=== PATIENT | female | born 1995 | race Caucasian/White ===

== ENCOUNTER 2018-07-06 18:38 | Emergency (ER) | payer OTHER ==
[2018-07-06 18:47] VITALS: BP 122/83; PULSE 97; TEMP 98.1; O2SAT 98
[2018-07-06] MEDS ORDERED: Tdap Vaccine 0.5 ml Vial (10-64 yrs) IM ONE ×2 (19:16→19:35)
[2018-07-06] MEDS ORDERED: Bacitracin 500 Units/gm Oint Foilpak UD TOP ONE (19:16)
[2018-07-06] MEDS ORDERED: Bacitracin 500 Units/gm Oint Foilpak UD ONE ×2 (19:24→19:26)
--- NOTE | 2018-07-06 19:56 | C.PDOC ---
History Of Present Illness 23 year old female presents to the ER after she tripped and fell on her shoelace causing her to land on her hands and knees and hit her face on the ground. Denies LOC, headache, burry vision, or vomiting. - HPI Time Seen by Provider: 07/06/18 19:05 Chief Complaint (Nursing): Trauma History Per: Patient History/Exam Limitations: no limitations Onset/Duration Of Symptoms: Hrs Injury Occurred (Timing): Just Before Arrival Location Of Injury: Right: Hand, Knee, Left: Hand, Knee, Anterior: Face Recent travel outside of the [place]: No - Fall Fall:Prior To Injury: Tripped Past Medical History Reviewed: Historical Data, Nursing Documentation, Vital Signs Vital Signs: Last Vital Signs Temp 98.1 F 07/06/18 18:43 Pulse 97 H 07/06/18 18:43 Resp 18 07/06/18 18:43 BP 122/83 07/06/18 18:43 Pulse Ox 98 07/06/18 18:43 Family History: States: Unknown Family Hx - Social History Hx Alcohol Use: No Hx Substance Use: No - Immunization History Hx Tetanus Toxoid Vaccination: No Hx Influenza Vaccination: No Hx Pneumococcal Vaccination: No Review Of Systems Constitutional: Negative for: Fever, Chills Eyes: Negative for: Pain, Vision Change ENT: Negative for: Nose Pain, Nose Discharge, Throat Pain Cardiovascular: Negative for: Chest Pain, Palpitations Respiratory: Negative for: Cough Gastrointestinal: Negative for: Vomiting Musculoskeletal: Positive for: Hand Pain, Other (Knee pain, Facial pain) Skin: Positive for: Other (Abrasions) Neurological: Positive for: Other (no loc). Negative for: Weakness, Numbness, Headache, Dizziness Physical Exam - Physical Exam Appears: Non-toxic, No Acute Distress Skin: Warm, Dry, Other (multiple abrasions to face, hands, knees) Head: Normacephalic, Tenderness (Mild to left zygomatic arch) Eye(s): bilateral: Normal Inspection, PERRL, EOMI Ear(s): Bilateral: Normal (no hemotympanum) Nose: Normal, No Epistaxis Oral Mucosa: Moist Tongue: Normal Appearing, No Swelling, No Bite, No Laceration Lips: No Normal Appearing, Swelling (upper lip), Contusion, Abrasion (Above upper lip) Teeth: Normal Dentition, No Loose Gingiva: Normal Appearing Neck: Normal ROM, No Midline Cervical Tenderness, No Paracervical Tenderness, Supple Chest: Symmetrical, No Tenderness Cardiovascular: Rhythm Regular Respiratory: Normal Breath Sounds, No Rales, No Rhonchi, No Wheezing Gastrointestinal/Abdominal: Soft, No Tenderness Back: No Vertebral Tenderness, No Paraspinal Tenderness Extremity: Normal ROM (x4), Capillary Refill (<2 seconds), No Deformity, Other (Quarter sized abrasions to bilateral proximal knees, abrasions to bilateral hands) Pulses: Left Radial: Normal, Right Radial: Normal Neurological/Psych: Oriented x3, Normal Speech, Normal Motor, Normal Sensation Gait: Steady ED Course And Treatment O2 Sat by Pulse Oximetry: 98 (room air) Pulse Ox Interpretation: Normal Disposition Counseled Patient/Family Regarding: Diagnosis, Need For Followup - Disposition Referrals: [facility] [Outside] Disposition: HOME/ ROUTINE Disposition Time: 19:53 Condition: GOOD Additional Instructions: Please keep abrasions clean. Wash gently with soap and water and pat dry, then apply antibiotic (bacitracin or neosporin) ointment 1-2 times per day. Tylenol 650 mg by mouth every 4-6 hours if needed for pain. Apply cold compresses (over thin cloth) to lip for 20 minutes at a time several times a day to help reduce swelling. Follow up with your doctor or in medical clinic. Return to ER for any signs of infection such as redness, swelling, warmth, fever, discharge from any abrasions or any other concerns. . Instructions: Contusion (DC), Skin Abrasions (DC) Forms: [facility] ([place]), General Discharge Instructions - Clinical Impression Clinical Impression: Fall from slip, trip, or stumble, Abrasion, multiple sites, Contusion of lip, initial encounter - PA / SUPERVISOR INSPECTION / Resident Statement MD/DO has reviewed & agrees with the documentation as recorded. - Scribe Statement The provider has reviewed the documentation as recorded by the Scribe Aden Winter All medical record entries made by the Scribe were at my direction and personally dictated by me. I have reviewed the chart and agree that the record accurately reflects my personal performance of the history, physical exam, medical decision making, and the department course for this patient. I have also personally directed, reviewed, and agree with the discharge instructions and disposition.
[2018-07-06 20:38] VITALS: RESP 20
== END 2018-07-06 20:37 | disposition home or self-care (01) ==
LOC: C.ER 18:38
DX: S00.531A Contusion of lip, initial encounter (principal); S60.512A Abrasion of left hand, initial encounter; S60.511A Abrasion of right hand, initial encounter; S80.212A Abrasion, left knee, initial encounter; S80.211A Abrasion, right knee, initial encounter; W01.0XXA Fall on same level from slipping, tripping and stumbling without subsequent striking against object, initial encounter